=== PATIENT | female | born 1945 | race Caucasian/White ===

== ENCOUNTER 2018-06-13 17:21 | Inpatient (IN) ==
--- NOTE | 2018-06-13 17:47 | ERNOTE ---
Neuro HPI ER Record Date of Service: 06/13/18 Presenting Symptoms: other - mental status change Time Seen by Provider: 06/13/18 17:26 Source: EMS Exam Limitations: clinical condition Allergies/Adverse Reactions: Allergies Allergy/AdvReac Type Severity Reaction Status Date / Time No Known Allergies Allergy Verified 06/06/18 14:42 Home Medications: HOME MEDICATIONS Atorvastatin Calcium [Lipitor] 20 mg PO HS 04/20/18 [Last Taken Unknown] Duloxetine HCl [Cymbalta] 60 mg PO DAILY 04/20/18 [Last Taken Unknown] LORazepam [Ativan] 0.5 mg PO PRN 04/20/18 [Last Taken Unknown] Memantine HCl [Namenda] 5 mg PO DAILY 04/20/18 [Last Taken Unknown] OXcarbazepine [Oxcarbazepine] 450 mg PO BID 04/20/18 [Last Taken Unknown] QUEtiapine FUMARATE [Quetiapine Fumarate ER] 50 mg PO DAILY 04/20/18 [Last Taken Unknown] levETIRAcetam [Keppra] 500 mg PO BID 04/20/18 [Last Taken Unknown] - History of Present Illness Narrative: No history is available from the patient. She has mental status changes and weakness that started anywhere from 30 minutes ago to several days ago. No onset of symptoms can be determined. She had advanced dementia at baseline, now not responding normally, seems to be leaning to the right and not able to walk. Once again no time of onset of symptoms can be determined. Onset: other - unknown, likely not within the last 6 hours based on EMS report and exam - Character of Deficits Additional Deficits: Present: other - see HPI Associated Symptoms: Reports: other - unknown Prior Treament: Reports: other - unknown Review of Systems - Narrative Narrative: Unobtainable d/t patient condition Medical History (Last Reviewed 06/13/18 @ 17:43 by Gustavo Moses MD) Advanced dementia (Chronic) Psychosis (Chronic) Hyperlipidemia (Chronic) Angina pectoris Anxiety Dementia Epilepsy Family history unobtainable GERD (gastroesophageal reflux disease) Gait disturbance HLD (hyperlipidemia) HTN (hypertension) Insomnia Low back pain Mental disorder Muscle weakness (generalized) Polyp, colonic Recurrent depressive disorder Restlessness and agitation Unspecified mood [affective] disorder Unspecified psychosis Family History: Family History (Last Reviewed 06/13/18 @ 17:43 by Gustavo Moses MD) Other Family history unobtainable Social History: Preferred Language German Smoking Status Never smoker (Last Updated 06/06/18 @ 16:45 by Chris Bucio DO) No Social History Section defined Physical Exam - Physical Exam General Appearance: Present: other - eyes closed, she does protect her airway but does not communicate with me Head Exam: Present: no evidence of injury Eye Exam: Normal inspection: bilateral, PERRL: bilateral Ears, Nose, Throat: Present: dry mucous membranes. Absent: pharyngeal erythema Neck: Present: normal inspection Respiratory: Present: no respiratory distress, normal breath sounds, lungs clear Cardiovascular/Chest: Present: regular rate, rhythm Gastrointestinal/Abdominal: Present: normal bowel sounds, soft, other - no rigidity or apparent tenderness Back Exam: Absent: CVA tenderness (R), CVA tenderness (L) Extremity Exam: Present: other - no deformity Neurological Exam: Present: other - difficult exam. She cannot cooperate with exam. Nursing noted her having varying levels of alertness. She will not move to command anywhere. Her arms and legs dreop to the bed bilaterally. Compromised exam Skin Exam: Present: normal color, warm/dry Progress - Results and Orders Patient's Lab Results:: I have reviewed the patient's lab results. - Vital Signs Patient's Vital Signs:: I have reviewed the patient's vital signs. - EKG EKG #1 EKG: NSR EKG read: Interp. by me EKG Comments: NSR rate 91. Non-specific ST/T wave changes. No evidence of STEMI - X-Ray X-Ray #1 X-Ray: chest Interpretation: Interp. by me X-ray Comments: I reviewed official radiology report - CT/Ultrasound CT/Ultrasound Narrative: I reviewed official radiology report - Progress/Reassessment Progress Note-Subjective: 06/13/18 19:07 IV fluids and IV ABx given. D/W Dr Whitmore who will admit the patient. At this time I do not find clear evidence of stroke and her Sx are most likely due to the pneumonia but furhter observation and treatment will be useful. 06/13/18 19:09 Departure Clinical Impression: Pneumonia, Change in mental status - Departure Disposition: Still a patient Condition: Fair Referrals: Chris Bucio DO [Primary Care Provider] -
[2018-06-13 17:54] LABS: Hematocrit 56.2 % (37.0-47.0); Hemoglobin 17.4 gm/dL (12.5-16.0); Mean Cell Volume 96.9 fl (78-100); Mean Platelet Volume 10.4 fl (8-12.5); Neutrophil # 8.9 K/mm3 (1.3-6.0); Platelet Count 186 K/mm3 (150-450); Red Cell Distribution Width 13.7 % (11.5-14.0); White Blood Count 11.1 K/mm3 (4.0-10.5)
[2018-06-13] MEDS ORDERED: NORMAL SALINE 1,000 ML IV ONE (18:06)
[2018-06-13 18:14] LABS: Troponin I Less than 0.017 ng/mL (0.00-0.10)
[2018-06-13 18:39] LABS: Glucose * 97 mg/dL (70-110)
[2018-06-13 18:40] LABS: ALT 21 U/L (19-67); Albumin * 3.3 gm/dl (3.4-5.0); Anion Gap 18.1 mmol/L (6.8-13.8); BUN/Creatinine Ratio 37.5 (9.0-21.6); Blood Urea Nitrogen 33 mg/dL (3-23); Ca. Corrected For Albumin 9.7 mg/dL (8.4-10.2); Calcium * 9.5 mg/dL (7.9-10.9); Chloride 115 mmol/L (97-106); Potassium 4.1 mmol/L (3.4-4.6); Sodium 154 mmol/L (132-142); Total Protein 7.7 gm/dL (6.2-8.2)
[2018-06-13 18:41] LABS: AST 23 U/L (0-48); Alkaline Phosphatase * 155 U/L (50-170); Bilirubin, Total 0.7 mg/dL (0.0-1.1); TSH * 1.353 uIU/mL (0.358-3.74)
[2018-06-13 18:52] LABS: Urine Bilirubin Negative (NEGATIVE); Urine Blood Negative /ul (NEGATIVE); Urine Ketone 15 mg/dL (NEGATIVE); Urine Protein 15 mg/dL (NEGATIVE); Urine Specific Gravity >=1.030 SP.GR. (1.005-1.010); Urine Urobilinogen Normal (NORMAL)
[2018-06-13 19:00] LABS: Urine Appearance Cloudy (CLEAR); Urine Bacteria 4+; Urine Color Dark Yellow; Urine Mucus Moderate - 2+; Urine Nitrite Positive (NEGATIVE); Urine RBC None Seen /hpf (0-5); Urine WBC 0-5 /hpf (0-5)
[2018-06-13] MEDS: LEVOFLOXACIN IN DEXTROSE 5 % 500 MG/100 ML BAG IV SCH (19:07)
[2018-06-14] MEDS: DEXTROSE 5%-0.5 NORMAL SALINE 1,000 ML IV PRN ×2 (11:34→19:27)
[2018-06-14] MEDS ORDERED: MELATONIN 3,000 MCG TABLET PO PRN (13:25)
[2018-06-14] MEDS: ARIPiprazole 10 MG TABLET PO SCH (14:47)
[2018-06-14] MEDS: HEPARIN SODIUM,PORCINE 5,000 UNITS/ML VIAL SC SCH ×2 (14:47→21:28)
[2018-06-14] MEDS: LISINOPRIL 2.5 MG TABLET PO SCH (14:48)
[2018-06-14] MEDS: levETIRAcetam 500 MG TABLET PO SCH ×2 (14:48→21:28)
[2018-06-14] MEDS: FAMOTIDINE 20 MG TABLET PO SCH (14:48)
[2018-06-14] MEDS: METOPROLOL TARTRATE 25 MG TABLET PO SCH ×2 (14:48→21:29)
--- NOTE | 2018-06-14 14:58 | HP ---
Chief Complaint - Chief Complaint Date of Service: 06/14/18 Time of Service: 14:42 Chief Complaint: Altered mental status and weakness History of Present Illness: 72-year-old female with a past medical history of advanced dementia, hyperlipidemia, anxiety, depression, hypertension, and psychosis presents with complaint of altered mental status and weakness. Patient resides in a facility and it was noted that her mentation had changed within the past 30 minutes to several days ago. It was stated that she was walking by leaning to the right. CT head was performed and showed no acute intracranial abnormality. Chest x-ray showed multifocal pneumonia bilaterally. She was started on Levaquin and given IV fluid. Medical History (Last Updated 06/13/18 @ 20:20 by Moni Cornejo RN) Advanced dementia (Chronic) Psychosis (Chronic) Hyperlipidemia (Chronic) right arm surgery Angina pectoris Anxiety Dementia Epilepsy Family history unobtainable GERD (gastroesophageal reflux disease) Gait disturbance HLD (hyperlipidemia) HTN (hypertension) Insomnia Low back pain Mental disorder Muscle weakness (generalized) Polyp, colonic Recurrent depressive disorder Restlessness and agitation Unspecified mood [affective] disorder Unspecified psychosis Surgical History: Surgical History (Last Updated 06/13/18 @ 20:20 by Moni Cornejo RN) History of ankle surgery History of bladder surgery Family History: Family History (Last Updated 06/13/18 @ 20:19 by Moni Cornejo RN) Sister Dementia Brother Dementia Father Dementia Social History: Patient Lives/Resources NH Utilized Occupation retired Preferred Language Jamaican Do you have any samaritan or No cultural preference? Smoking Status Former smoker Have you smoked in the past 12 No months Do you dip or chew tobacco No Alcohol Use none Drug Use none (Last Updated 06/06/18 @ 16:45 by Chris Bucio DO) No Social History Section defined Review Of Systems (GEN) - Review of Systems Generalized/Overall Review: Present: Weakness Misc: All systems neg except as marked Allergies/Adverse Reactions: Allergies Allergy/AdvReac Type Severity Reaction Status Date / Time No Known Allergies Allergy Verified 06/13/18 21:20 Home Medications: HOME MEDICATIONS LORazepam [Ativan] 1 mg PO TID PRN 04/20/18 [Last Taken 06/13/18 16:19] levETIRAcetam [Keppra] 500 mg PO BID 04/20/18 [Last Taken 06/13/18] ARIPiprazole [Abilify] 5 mg PO DAILY 06/13/18 [Last Taken 06/13/18] Acetaminophen 500 mg PO QID 06/13/18 [Last Taken 06/13/18] Aspirin [Aspirin Chewable] 81 mg PO DAILY 06/13/18 [Last Taken 06/13/18] Atorvastatin Calcium 40 mg PO DAILY 06/13/18 [Last Taken 06/13/18] Carbamide Peroxide [Debrox] 3 drp OTIC (EAR) 06/13/18 [Last Taken 06/11/18] Cetirizine HCl 10 mg PO HS 06/13/18 [Last Taken 06/13/18] Famotidine 20 mg PO DAILY 06/13/18 [Last Taken 06/13/18] Lisinopril [Zestril] 2.5 mg PO DAILY 06/13/18 [Last Taken 06/13/18] Magnesium Hydroxide [Milk Of Magnesia] 30 ml PO DAILY PRN 06/13/18 [Last Taken Unknown] Melatonin/Pyridoxine HCl (B6) [Melatonin 3 mg Tablet] 1 ea PO HS 06/13/18 [Last Taken 06/12/18] Metoprolol Tartrate [Lopressor] 25 mg PO BID 06/13/18 [Last Taken 06/13/18] Vitamin D3 2,000 units PO DAILY 06/13/18 [Last Taken 06/13/18] Exam - Exam Vital Signs: Vital Signs - Last Taken Temp 36.0 C 06/14/18 12:00 Pulse 94 06/14/18 12:00 Resp 16 06/14/18 12:00 BP 147/82 06/14/18 12:00 Pulse Ox 94 06/14/18 12:00 Constitutional: Present: Alert, Cooperative, Well developed, Well nourished, No distress ENT Exam: Present: hearing grossly normal Eye Exam: left eye: normal inspection Neck: Present: supple. Absent: lymphadenopathy (R), lymphadenopathy (L) Respiratory: Present: lungs clear. Absent: crackles, rhonchi, wheezing Cardiovascular/Chest: Present: normal peripheral pulses, regular rate, rhythm, no edema, no murmur Peripheral Pulses: dorsalis-pedis (R): 2+, dorsalis-pedis (L): 2+ Abdomen: Present: Normal bowel sounds, soft, nontender Extremity: Present: no pedal edema Skin Exam: Present: normal color, warm/dry Neurologic: Present: depressed affect Appearance: Present: impaired insight Eye contact: Present: cooperative Diagnostic Studies: Abnormal Lab Results 06/13/18 06/13/18 06/13/18 Range/Units 17:40 17:40 17:40 WBC 11.1 H (4.0-10.5) K/mm3 RBC 5.80 H (4.2-5.4) M/mm3 Hgb 17.4 H (12.5-16.0) gm/dL Hct 56.2 H (37.0-47.0) % MCHC 31.0 L (32-36) g/dl Neutrophils % 80.0 H (42-75.0) % Lymphocytes % 12.8 L (20-51) % Neutrophils # 8.9 H (1.3-6.0) K/mm3 Lymphocytes # 1.42 L (1.5-3.5) k/mm3 Sodium 154 H (132-142) mmol/L Plasma Sodium 154 H (130-142) mmol/L Chloride 115 H (97-106) mmol/L Anion Gap 18.1 H (6.8-13.8) mmol/L BUN 33 H D (3-23) mg/dL BUN/Creatinine Ratio 37.5 H (9.0-21.6) Lactic Acid, Venous 2.2 H* (0.4-2.0) mmol/L Albumin 3.3 L (3.4-5.0) gm/dl Urine Protein (NEGATIVE) mg/dL Urine Nitrate (NEGATIVE) Ur Leukocyte Esterase (NEGATIVE) /ul Ur Epithelial Cells (0-5) /hpf Urine Bacteria (NONE) Urine Mucus (NONE) 06/13/18 06/13/18 Range/Units 18:43 21:18 WBC (4.0-10.5) K/mm3 RBC (4.2-5.4) M/mm3 Hgb (12.5-16.0) gm/dL Hct (37.0-47.0) % MCHC (32-36) g/dl Neutrophils % (42-75.0) % Lymphocytes % (20-51) % Neutrophils # (1.3-6.0) K/mm3 Lymphocytes # (1.5-3.5) k/mm3 Sodium (132-142) mmol/L Plasma Sodium (130-142) mmol/L Chloride (97-106) mmol/L Anion Gap (6.8-13.8) mmol/L BUN (3-23) mg/dL BUN/Creatinine Ratio (9.0-21.6) Lactic Acid, Venous 2.3 H* (0.4-2.0) mmol/L Albumin (3.4-5.0) gm/dl Urine Protein 15 H (NEGATIVE) mg/dL Urine Nitrate Positive H (NEGATIVE) Ur Leukocyte Esterase 25 H (NEGATIVE) /ul Ur Epithelial Cells 5-10 H (0-5) /hpf Urine Bacteria 4+ H (NONE) Urine Mucus Moderate - 2+ H (NONE) Microbiology 06/13/18 14:23 Urine Culture - Preliminary Urine,Catheterized Gram Negative Bacilli Laboratory Results WBC 11.1 K/mm3 (4.0-10.5) H 06/13/18 17:40 RBC 5.80 M/mm3 (4.2-5.4) H 06/13/18 17:40 Hgb 17.4 gm/dL (12.5-16.0) H 06/13/18 17:40 Hct 56.2 % (37.0-47.0) H 06/13/18 17:40 MCV 96.9 fl (78-100) 06/13/18 17:40 MCH 30.0 pg (27-31) 06/13/18 17:40 MCHC 31.0 g/dl (32-36) L 06/13/18 17:40 RDW 13.7 % (11.5-14.0) 06/13/18 17:40 Plt Count 186 K/mm3 (150-450) 06/13/18 17:40 MPV 10.4 fl (8-12.5) 06/13/18 17:40 Immature Gran % (Auto) 0.30 % (0.001-0.429) 06/13/18 17:40 Immature Gran # (Auto) 0.03 K/mm3 (0.000-0.0310) 06/13/18 17:40 Neutrophils % 80.0 % (42-75.0) H 06/13/18 17:40 Lymphocytes % 12.8 % (20-51) L 06/13/18 17:40 Monocytes % 6.1 % (0.0-9) 06/13/18 17:40 Eosinophils % 0.5 % (0.0-3.0) 06/13/18 17:40 Basophils % 0.3 % (0.0-1.0) 06/13/18 17:40 Nucleated RBC % 0.0 k/mm3 (0-1) 06/13/18 17:40 Neutrophils # 8.9 K/mm3 (1.3-6.0) H 06/13/18 17:40 Lymphocytes # 1.42 k/mm3 (1.5-3.5) L 06/13/18 17:40 Monocytes # 0.7 k/mm3 (0.0-1.0) 06/13/18 17:40 Eosinophils # 0.1 k/mm3 (0.0-0.7) 06/13/18 17:40 Absolute Basophils 0.0 k/mm3 (0.0-0.1) 06/13/18 17:40 Sodium 154 mmol/L (132-142) H 06/13/18 17:40 Plasma Sodium 154 mmol/L (130-142) H 06/13/18 17:40 Potassium 4.1 mmol/L (3.4-4.6) 06/13/18 17:40 Chloride 115 mmol/L (97-106) H 06/13/18 17:40 Carbon Dioxide 25.0 mmol/L (24-32.6) 06/13/18 17:40 Anion Gap 18.1 mmol/L (6.8-13.8) H 06/13/18 17:40 BUN 33 mg/dL (3-23) H D 06/13/18 17:40 Creatinine 0.88 mg/dL (0.4-1.4) 06/13/18 17:40 Est GFR (Non-Af Amer) 67 mL/min (60-130) 06/13/18 17:40 BUN/Creatinine Ratio 37.5 (9.0-21.6) H 06/13/18 17:40 Random Glucose 97 mg/dL (70-110) 06/13/18 17:40 Lactic Acid, Venous 2.3 mmol/L (0.4-2.0) H* 06/13/18 21:18 Calcium 9.5 mg/dL (7.9-10.9) 06/13/18 17:40 Calcium Adj for Albumin 9.7 mg/dL (8.4-10.2) 06/13/18 17:40 Total Bilirubin 0.7 mg/dL (0.0-1.1) 06/13/18 17:40 AST 23 U/L (0-48) 06/13/18 17:40 ALT 21 U/L (19-67) 06/13/18 17:40 Alkaline Phosphatase 155 U/L (50-170) 06/13/18 17:40 Ammonia Less than 17.0 mcmol/L (11-35) 06/13/18 17:40 Troponin I Less than 0.017 ng/mL (0.00-0.10) 06/13/18 17:40 Total Protein 7.7 gm/dL (6.2-8.2) 06/13/18 17:40 Albumin 3.3 gm/dl (3.4-5.0) L 06/13/18 17:40 TSH 1.353 uIU/mL (0.358-3.74) 06/13/18 17:40 Urine Color Dark yellow 06/13/18 18:43 Urine Appearance Cloudy (CLEAR) 06/13/18 18:43 Urine pH 6.0 pH (5.0-7.0) 06/13/18 18:43 Ur Specific [place] >=1.030 SP.GR. (1.005-1.010) 06/13/18 18:43 Urine Protein 15 mg/dL (NEGATIVE) H 06/13/18 18:43 Urine Glucose (UA) Negative mg/dL (NEGATIVE) 06/13/18 18:43 Urine Ketones 15 mg/dL (NEGATIVE) 06/13/18 18:43 Urine Blood Negative /ul (NEGATIVE) 06/13/18 18:43 Urine Nitrate Positive (NEGATIVE) H 06/13/18 18:43 Urine Bilirubin Negative mg/dl (NEGATIVE) 06/13/18 18:43 Prot Sulfosalicylic Acd Negative mg/dL (0) 06/13/18 18:43 Urine Urobilinogen Normal EU/dl (NORMAL) 06/13/18 18:43 Ur Leukocyte Esterase 25 /ul (NEGATIVE) H 06/13/18 18:43 Urine RBC None seen /hpf (0-5) 06/13/18 18:43 Urine WBC 0-5 /hpf (0-5) 06/13/18 18:43 Ur Epithelial Cells 5-10 /hpf (0-5) H 06/13/18 18:43 Urine Bacteria 4+ (NONE) H 06/13/18 18:43 Urine Mucus Moderate - 2+ (NONE) H 06/13/18 18:43 Urine Culture Comments Culture to follow 06/13/18 18:43 Influenza Type A Ag Negative (NEGATIVE) 06/13/18 18:43 Influenza Type B Ag Negative (NEGATIVE) 06/13/18 18:43 Assessment/Plan - Narrative Narrative: 72-year-old female with a past medical history of advanced dementia, hyperlipidemia, anxiety, depression, hypertension, and psychosis presents with complaint of altered mental status and weakness. CT head was performed and showed no acute intracranial abnormality. Chest x-ray showed multifocal pneumonia bilaterally. She was started on Levaquin and given IV fluid. - Assessment/Plan (1) Hypertension Assessment: Resume home medications Problem: Acute Qualifiers: Hypertension type: essential hypertension Qualified Code(s): I10 - Essential (primary) hypertension (2) Pneumonia Assessment: Continue with Levaquin Problem: Acute Qualifiers: Laterality: bilateral (3) Change in mental status Assessment: Mentation remains altered. This may be secondary to her dementia. She is alert and awake but unable to hold a conversation or answer questions appropriately. Problem: Acute (4) Advanced dementia Assessment: Stable no changes in medications. Problem: Chronic
[2018-06-14 15:42] LABS: Albumin * 3.1 gm/dl (3.4-5.0); Anion Gap 15.1 mmol/L (6.8-13.8); BUN/Creatinine Ratio 39.2 (9.0-21.6); Bilirubin, Total 0.6 mg/dL (0.0-1.1); Ca. Corrected For Albumin 9.6 mg/dL (8.4-10.2); Calcium * 9.2 mg/dL (7.9-10.9); Carbon Dioxide 26.2 mmol/L (24-32.6); Potassium 3.3 mmol/L (3.4-4.6); Total Protein 7.1 gm/dL (6.2-8.2)
[2018-06-14] MEDS: LEVOFLOXACIN IN DEXTROSE 5 % 500 MG/100 ML BAG IV SCH (21:21)
[2018-06-15] MEDS: DEXTROSE 5%-0.5 NORMAL SALINE 1,000 ML IV PRN ×3 (04:28→23:14)
[2018-06-15] MEDS: HEPARIN SODIUM,PORCINE 5,000 UNITS/ML VIAL SC SCH ×3 (05:06→21:19)
[2018-06-15 06:29] LABS: Hematocrit 42.7 % (37.0-47.0); Hemoglobin 13.6 gm/dL (12.5-16.0); Mean Cell Volume 93.4 fl (78-100); Mean Corpuscular Hemoglobin 29.8 pg (27-31); Mean Corpuscular Hgb Conc 31.9 g/dl (32-36); Mean Platelet Volume 10.7 fl (8-12.5); Neutrophil # 7.6 K/mm3 (1.3-6.0); Neutrophil % 76.8 % (42-75.0); Platelet Count 152 K/mm3 (150-450); Red Blood Count 4.57 M/mm3 (4.2-5.4); Red Cell Distribution Width 13.3 % (11.5-14.0); White Blood Count 9.8 K/mm3 (4.0-10.5)
[2018-06-15 06:48] LABS: Albumin * 2.4 gm/dl (3.4-5.0); Anion Gap 12.6 mmol/L (6.8-13.8); Bilirubin, Total 0.6 mg/dL (0.0-1.1); Ca. Corrected For Albumin 9.7 mg/dL (8.4-10.2); Calcium * 8.7 mg/dL (7.9-10.9); Carbon Dioxide 25.3 mmol/L (24-32.6); Potassium 2.9 mmol/L (3.4-4.6); Total Protein 5.7 gm/dL (6.2-8.2)
[2018-06-15] MEDS: METOPROLOL TARTRATE 25 MG TABLET PO SCH ×2 (08:57→20:16)
[2018-06-15] MEDS: FAMOTIDINE 20 MG TABLET PO SCH (08:57)
[2018-06-15] MEDS: ARIPiprazole 10 MG TABLET PO SCH (08:57)
[2018-06-15] MEDS: LISINOPRIL 2.5 MG TABLET PO SCH (08:57)
[2018-06-15] MEDS: levETIRAcetam 500 MG TABLET PO SCH ×2 (08:57→20:15)
[2018-06-15] MEDS ORDERED: DEXTROSE 5%-0.5 NORMAL SALINE 1,000 ML IV PRN (09:00)
[2018-06-15] MEDS ORDERED: POTASSIUM BICARBONATE/CIT AC 25 MEQ TABLET.EFF PO SCH (09:15)
[2018-06-15] MEDS ORDERED: POTASSIUM CHLORIDE 10 MEQ TABLET.SA PO ONE (10:29)
[2018-06-15] MEDS ORDERED: POTASSIUM CHLORIDE 20 MEQ TABLET.SA PO ONE (10:29)
--- NOTE | 2018-06-15 11:15 | PN ---
Subjective - Date and Time Seen Date: 06/15/18 Time: 11:03 Subjective Narrative: She states she is feeling fine Objective - Review of Systems Generalized/Overall Review: Reports: Weakness Respiratory: Denies: Shortness of Breath Misc: All systems neg except as marked - Vitals Vitals: Last Vital Signs Temp 36.8 C 06/15/18 09:20 Pulse 58 L 06/15/18 09:20 Resp 20 06/15/18 09:20 BP 115/55 06/15/18 09:20 Pulse Ox 92 L 06/15/18 09:20 - Abnormal Lab Findings Abnormal Lab Findings: Abnormal Lab Results 06/14/18 06/15/18 06/15/18 Range/Units 15:23 06:00 06:00 MCHC 31.9 L (32-36) g/dl Neutrophils % 76.8 H (42-75.0) % Lymphocytes % 15.3 L (20-51) % Neutrophils # 7.6 H (1.3-6.0) K/mm3 Sodium 153 H 149 H (132-142) mmol/L Plasma Sodium 154 H 150 H (130-142) mmol/L Potassium 3.3 L 2.9 L (3.4-4.6) mmol/L Chloride 115 H 114 H (97-106) mmol/L Anion Gap 15.1 H (6.8-13.8) mmol/L BUN 29 H (3-23) mg/dL BUN/Creatinine Ratio 39.2 H 30.0 H (9.0-21.6) Random Glucose 132 H D 142 H (70-110) mg/dL ALT 15 L (19-67) U/L Total Protein 5.7 L (6.2-8.2) gm/dL Albumin 3.1 L 2.4 L (3.4-5.0) gm/dl - Exam Constitutional: Present: Alert, Cooperative, Well developed, Well nourished, No distress, Elderly. Absent: Oriented x3 ENT Exam: Present: hearing grossly normal Neck: Present: non-tender, supple. Absent: lymphadenopathy (R), lymphadenopathy (L) Respiratory: Present: lungs clear. Absent: crackles, rhonchi, wheezing Cardiovascular/Chest: Present: normal peripheral pulses, regular rate, rhythm, no edema, no murmur Abdomen: Present: Normal bowel sounds, soft, nontender Extremity: Present: no pedal edema Skin Exam: Present: normal color, warm/dry Neurologic: Present: motor weakness Appearance: Present: impaired insight Eye contact: Present: avoids eye contact Thoughts: Present: incoherent Assessment/Plan Plan Narrative: 72-year-old female with a past medical history of dementia, hyperlipidemia, anxiety, depression, hypertension and psychosis presents with altered mental status and weakness. CT head was negative, chest x-ray showed bilateral perihilar consolidation/infiltrate, right worse than left, suggestive of multifocal pneumonia. She has been admitted and is being treated for pneumonia. WBCs have normalized. She appears more continues to be confused which is her baseline. - Problems/Diagnosis (1) Pneumonia Problem: Acute Qualifiers: Laterality: bilateral Narrative: She appears to be improving and not requiring any supplemental oxygen. Chest x- ray showed bilateral perihilar infiltrates/consolidation suggestive of multifocal pneumonia. Continue with Levaquin (2) Hypertension Problem: Acute Qualifiers: Hypertension type: essential hypertension Qualified Code(s): I10 - Essential (primary) hypertension Narrative: Stable no changes to medications. (3) Change in mental status Problem: Acute Narrative: Somewhat improved no changes to medications. (4) Advanced dementia Problem: Chronic Narrative: Stable no changes to medications.
[2018-06-15] MEDS ORDERED: LEVOFLOXACIN IN DEXTROSE 5 % 500 MG/100 ML BAG IV SCH (18:30)
[2018-06-16] MEDS: HEPARIN SODIUM,PORCINE 5,000 UNITS/ML VIAL SC SCH (05:03)
[2018-06-16 06:18] LABS: Hematocrit 41.2 % (37.0-47.0); Hemoglobin 13.6 gm/dL (12.5-16.0); Mean Cell Volume 91.4 fl (78-100); Mean Corpuscular Hemoglobin 30.2 pg (27-31); Mean Platelet Volume 10.9 fl (8-12.5); Neutrophil # 7.3 K/mm3 (1.3-6.0); Neutrophil % 75.8 % (42-75.0); Platelet Count 151 K/mm3 (150-450); Red Blood Count 4.51 M/mm3 (4.2-5.4); White Blood Count 9.7 K/mm3 (4.0-10.5)
[2018-06-16 06:35] LABS: Albumin * 2.5 gm/dl (3.4-5.0); BUN/Creatinine Ratio 11.1 (9.0-21.6); Bilirubin, Total 0.5 mg/dL (0.0-1.1); Ca. Corrected For Albumin 9.5 mg/dL (8.4-10.2); Calcium * 8.6 mg/dL (7.9-10.9); Carbon Dioxide 24.9 mmol/L (24-32.6); Potassium 2.9 mmol/L (3.4-4.6)
[2018-06-16] MEDS: DEXTROSE 5%-0.5 NORMAL SALINE 1,000 ML IV PRN (07:58)
[2018-06-16] MEDS: FAMOTIDINE 20 MG TABLET PO SCH (08:25)
[2018-06-16] MEDS: LISINOPRIL 2.5 MG TABLET PO SCH (08:25)
[2018-06-16] MEDS: ARIPiprazole 10 MG TABLET PO SCH (08:25)
[2018-06-16] MEDS: levETIRAcetam 500 MG TABLET PO SCH (08:26)
[2018-06-16] MEDS: METOPROLOL TARTRATE 25 MG TABLET PO SCH (08:26)
[2018-06-16] MEDS ORDERED: SPIRONOLACTONE 25 MG TABLET PO SCH (09:00)
[2018-06-16] MEDS ORDERED: POTASSIUM CHLORIDE 20 MEQ TABLET.SA PO SCH (09:00)
[2018-06-16] MEDS ORDERED: LORazepam 1 MG TABLET PO ONE (13:37)
--- NOTE | 2018-06-16 14:18 | DS ---
(1) Hypokalemia Problem: Acute (2) Pneumonia Problem: Acute Qualifiers: Pneumonia type: due to unspecified organism Laterality: bilateral Lung location: unspecified part of lung Qualified Code(s): J18.9 - Pneumonia, unspecified organism (3) Change in mental status Problem: Chronic (4) Hypertension Problem: Acute Qualifiers: Hypertension type: essential hypertension Qualified Code(s): I10 - Essential (primary) hypertension (5) Advanced dementia Problem: Chronic (6) Psychosis Problem: Chronic Qualifiers: Psychosis type: delusional disorder Qualified Code(s): F22 - Delusional disorders Description of Stay: Shani Brito is a 72-year-old female admitted through ER from [facility] for diagnosis of bilateral perihilar pneumonia. She also had a urinary tract infection from Klebsiella pneumonia. She has been treated with Levaquin since admission and is improved. She has had a rising blood pressure for the last 2-3 days. I started her on amlodipine to compensate. Also her anxiety is out of control. She was given a milligram of lorazepam in preparation for going back to the care home. Her potassium was low this morning at 2.9. I started her on spironolactone and given her potassium chloride 20 mEq by mouth and the repeat potassium at noon is 3.1. She'll return to the [facility] afternoon. Procedures Performed: none Results and Findings: Pending Mircobiology Results 06/13/18 19:00 Blood Blood Culture - Preliminary NO GROWTH AFTER 48 HOURS 06/13/18 18:00 Blood Blood Culture - Preliminary NO GROWTH AFTER 48 HOURS Lab Pending Results 06/13/18 17:40: WBC 11.1 H, RBC 5.80 H, Hgb 17.4 H, Hct 56.2 H, MCV 96.9, MCH 30.0, MCHC 31.0 L, RDW 13.7, Plt Count 186, MPV 10.4, Immature Gran % (Auto) 0.30, Immature Gran # (Auto) 0.03, Neutrophils % 80.0 H, Lymphocytes % 12.8 L, Monocytes % 6.1, Eosinophils % 0.5, Basophils % 0.3, Nucleated RBC % 0.0, Jose trophils # 8.9 H, Lymphocytes # 1.42 L, Monocytes # 0.7, Eosinophils # 0.1, Absolute Basophils 0.0 06/13/18 17:40: Sodium 154 H, Plasma Sodium 154 H, Potassium 4.1, Chloride 115 H, Carbon Dioxide 25.0, Anion Gap 18.1 H, BUN 33 H D, Creatinine 0.88, Est GFR (Non-Af Amer) 67, BUN/Creatinine Ratio 37.5 H, Random Glucose 97, Calcium 9.5, Calcium Adj for Albumin 9.7, Total Bilirubin 0.7, AST 23, ALT 21, Alkaline Phosphatase 155, Troponin I Less than 0.017, Total Protein 7.7, Albumin 3.3 L, TSH 1.353 06/13/18 17:40: Lactic Acid, Venous 2.2 H* 06/13/18 17:40: Ammonia Less than 17.0 06/13/18 18:43: Urine Color Dark yellow, Urine Appearance Cloudy, Urine pH 6.0, Ur Specific [place] >=1.030, Urine Protein 15 H, Urine Glucose (UA) Negative, Urine Ketones 15, Urine Blood Negative, Urine Nitrate Positive H, Urine Bilirubin Negative, Prot Sulfosalicylic Acd Negative, Urine Urobilinogen Normal, Ur Leukocyte Esterase 25 H, Urine RBC None seen, Urine WBC 0-5, Ur Epithelial Cells 5-10 H, Urine Bacteria 4+ H, Urine Mucus Moderate - 2+ H, Urine Culture Comments Culture to follow 06/13/18 18:43: Influenza Type A Ag Negative, Influenza Type B Ag Negative 06/13/18 21:18: Lactic Acid, Venous 2.3 H* 06/14/18 15:23: Sodium 153 H, Plasma Sodium 154 H, Potassium 3.3 L, Chloride 115 H, Carbon Dioxide 26.2, Anion Gap 15.1 H, BUN 29 H, Creatinine 0.74, Est GFR (Non-Af Amer) 82 D, BUN/Creatinine Ratio 39.2 H, Random Glucose 132 H D, Calcium 9.2, Calcium Adj for Albumin 9.6, Total Bilirubin 0.6, AST 24, ALT 24, Alkaline Phosphatase 140, Total Protein 7.1, Albumin 3.1 L 06/14/18 15:23: Lactic Acid, Venous 1.4 06/15/18 06:00: WBC 9.8, RBC 4.57, Hgb 13.6, Hct 42.7, MCV 93.4, MCH 29.8, MCHC 31.9 L, RDW 13.3, Plt Count 152, MPV 10.7, Immature Gran % (Auto) 0.20, Immature Gran # (Auto) 0.02, Neutrophils % 76.8 H, Lymphocytes % 15.3 L, Monocytes % 6.0, Eosinophils % 1.2, Basophils % 0.5, Nucleated RBC % 0.0, Neutrophils # 7.6 H, Lymphocytes # 1.50, Monocytes # 0.6, Eosinophils # 0.1, Absolute Basophils 0.1 06/15/18 06:00: Sodium 149 H, Plasma Sodium 150 H, Potassium 2.9 L, Chloride 114 H, Carbon Dioxide 25.3, Anion Gap 12.6, BUN 18, Creatinine 0.60, Est GFR (Non-Af Amer) 104 D, BUN/Creatinine Ratio 30.0 H, Random Glucose 142 H, Calcium 8.7, Calcium Adj for Albumin 9.7, Total Bilirubin 0.6, AST 19, ALT 15 L, Alkaline Phosphatase 104, Total Protein 5.7 L, Albumin 2.4 L 06/16/18 06:05: WBC 9.7, RBC 4.51, Hgb 13.6, Hct 41.2, MCV 91.4, MCH 30.2, MCHC 33.0, RDW 13.0, Plt Count 151, MPV 10.9, Immature Gran % (Auto) 0.30, Immature Gran # (Auto) 0.03, Neutrophils % 75.8 H, Lymphocytes % 14.3 L, Monocytes % 6.9, Eosinophils % 2.3, Basophils % 0.4, Nucleated RBC % 0.0, Neutrophils # 7.3 H, Lymphocytes # 1.38 L, Monocytes # 0.7, Eosinophils # 0.2, Absolute Basophils 0.0 06/16/18 06:05: Sodium 147 H, Plasma Sodium 148 H, Potassium 2.9 L, Chloride 111 H, Carbon Dioxide 24.9, Anion Gap 14.0 H, BUN 7 D, Creatinine 0.63, Est GFR (Non-Af Amer) 98, BUN/Creatinine Ratio 11.1, Random Glucose 133 H, Calcium 8.6, Calcium Adj for Albumin 9.5, Total Bilirubin 0.5, AST 22, ALT 21, Alkaline Phosphatase 103, Total Protein 6.0 L, Albumin 2.5 L 06/16/18 12:18: Potassium 3.1 L Discharge Location: [facility] Disposition: Intermediate Care Facility ICF Condition: Fair Face to Face Encounter completed per [facility] Guidelines: No Level of Care: ICF Discharge Activity: Activity as tolerated Discharge Diet: General/regular food Referrals: Chris Bucio DO [Primary Care Provider] - Prescriptions (Any new or edited meds): Levofloxacin [Levaquin] 500 mg PO DAILY #7 tab Potassium Chloride [K-Dur] 20 meq PO BID #60 tablet Spironolactone 50 mg PO BID #60 tablet Complete Home Medications List: Complete Home Medication List: LORazepam [Ativan] 1 mg PO TID PRN 04/20/18 levETIRAcetam [Keppra] 500 mg PO BID 04/20/18 ARIPiprazole [Abilify] 5 mg PO DAILY 06/13/18 Acetaminophen 500 mg PO QID 06/13/18 Aspirin [Aspirin Chewable] 81 mg PO DAILY 06/13/18 Atorvastatin Calcium 40 mg PO DAILY 06/13/18 Carbamide Peroxide [Debrox] 3 drp OTIC (EAR) 06/13/18 Cetirizine HCl 10 mg PO HS 06/13/18 Famotidine 20 mg PO DAILY 06/13/18 Lisinopril [Zestril] 2.5 mg PO DAILY 06/13/18 Magnesium Hydroxide [Milk Of Magnesia] 30 ml PO DAILY PRN 06/13/18 Melatonin/Pyridoxine HCl (B6) [Melatonin 3 mg Tablet] 1 ea PO HS 06/13/18 Metoprolol Tartrate [Lopressor] 25 mg PO BID 06/13/18 Vitamin D3 2,000 units PO DAILY 06/13/18 Levofloxacin [Levaquin] 500 mg PO DAILY #7 tab 06/16/18 Potassium Chloride [K-Dur] 20 meq PO BID #60 tablet 06/16/18 Spironolactone 50 mg PO BID #60 tablet 06/16/18
[2018-06-16] MEDS ORDERED: MAGNESIUM HYDROXIDE 30 ML UDC PO PRN (14:22)
[2018-06-16] MEDS ORDERED: LORazepam 0.5 MG TABLET PO PRN (14:22)
[2018-06-16 14:58] VITALS: BP 124/54
[2018-06-16] MEDS ORDERED: ACETAMINOPHEN 500 MG TABLET PO SCH (17:00)
[2018-06-16] MEDS ORDERED: PYRIDOXINE HCL PO SCH (21:00)
[2018-06-16] MEDS ORDERED: levETIRAcetam 500 MG TABLET PO SCH (21:00)
[2018-06-16] MEDS ORDERED: METOPROLOL TARTRATE 25 MG TABLET PO SCH (21:00)
[2018-06-16] MEDS ORDERED: LORATADINE 10 MG TABLET PO SCH (21:00)
[2018-06-16] MEDS ORDERED: MELATONIN PO SCH (21:00)
[2018-06-17] MEDS ORDERED: LISINOPRIL 2.5 MG TABLET PO SCH (09:00)
[2018-06-17] MEDS ORDERED: ASPIRIN 81 MG TAB.CHEW PO SCH (09:00)
[2018-06-17] MEDS ORDERED: CHOLECALCIFEROL 1,000 UNIT CAPSULE PO SCH (09:00)
[2018-06-17] MEDS ORDERED: ARIPiprazole 5 MG TABLET PO SCH (09:00)
[2018-06-17] MEDS ORDERED: ROSUVASTATIN CALCIUM 20 MG TABLET PO SCH (09:00)
[2018-06-17] MEDS ORDERED: FAMOTIDINE 20 MG TABLET PO SCH (09:00)
== END 2018-06-16 15:20 | DRG 194 ==
LOC: ER 17:21 → MS 17:21
PROVIDERS: ADMIT Internal Medicine; ATTEND Family Medicine
CPT/HCPCS: 36415; 70450; 71010; 71045; 80053; 81001; 82140; 83605; 84132; 84443; 84484; 85025; 87040; 87077; 87081; 87086; 87186; 87400; 87449; 93005; 96361; 96365; 96366; 99285